=== PATIENT | female | born 1995 | race Caucasian/White ===

== ENCOUNTER 2017-06-30 23:54 | Inpatient (IN) | payer BC, OTHER ==
[2017-07-01 02:25] LABS: ADD MAN DIFF? NO
[2017-07-01 02:27] LABS: BASOPHILS % 0.2 % (0.0-2.0); HEMATOCRIT 39.7 % (37.0-47.0); HEMOGLOBIN 14.4 g/dl (12.0-16.0); LYMPHOCYTES # 1.8 10^3/ul (0.8-2.9); LYMPHOCYTES % 12.3 % (15.0-51.0); MEAN CORPUSCULAR HEMOGLOBIN 30.4 pg (29.0-33.0); MEAN CORPUSCULAR HGB CONC 36.3 g/dl (32.0-37.0); MEAN CORPUSCULAR VOLUME 83.8 fl (82.0-101.0); MEAN PLATELET VOLUME 10.2 fl (7.4-10.4); MONOCYTE # 0.4 10^3/ul (0.3-0.9); MONOCYTES % 2.6 % (0.0-11.0); NEUTROPHIL # 12.4 10^3/ul (1.6-7.5); NEUTROPHILS % 84.6 % (39.0-77.0); PLATELET COUNT 317 10^3/UL (140-415); RED BLOOD COUNT 4.74 10^6/ul (4.20-5.40); RED CELL DISTRIBUTION WIDTH 11.7 % (11.5-14.5)
[2017-07-01 02:27] LABS: WHITE BLOOD COUNT 14.7 10^3/ul (4.8-10.8)
[2017-07-01] MEDS: morphine 4 MG/ML VIAL IV (02:37)
[2017-07-01] MEDS: ONDANSETRON 4 MG INJ IV ×3 (02:38→11:26)
[2017-07-01] MEDS: HYDROmorphONE 1 MG/ML SYG IV (02:45)
[2017-07-01] MEDS: SOD CHLORIDE 0.9% 500 ML IV (02:45)
[2017-07-01 03:02] LABS: ALANINE AMINOTRANSFERASE 33 IU/L (13-69); ALBUMIN 4.8 g/dl (3.3-4.9); ALBUMIN/GLOBULIN RATIO 1.23; ALKALINE PHOSPHATASE 60 IU/L (42-121); ANION GAP 21 (8-16); ASPARTATE AMINO TRANSFERASE 21 IU/L (15-46); BILIRUBIN,INDIRECT 0.6 mg/dl (0-1.1); BILIRUBIN,TOTAL 0.6 mg/dl (0.2-1.3); BLOOD UREA NITROGEN 12 mg/dl (7-20); CALCIUM 9.9 mg/dl (8.4-10.2); CARBON DIOXIDE 20 mmol/L (21-31); CHLORIDE 106 mmol/L (97-110); GLUCOSE 145 mg/dl (70-220); LIPASE 57 U/L (23-300); POTASSIUM 3.5 mmol/L (3.5-5.1); SODIUM 143 mmol/L (135-144); TOTAL PROTEIN 8.7 g/dl (6.1-8.1)
[2017-07-01 03:21] LABS: ADD UMIC YES; UR ASCORBIC ACID NEGATIVE (NEGATIVE); UR BILIRUBIN (Dip) NEGATIVE (NEGATIVE); UR BLOOD (Dip) NEGATIVE (NEGATIVE); UR CLARITY SLIGHTLY CLOUDY (CLEAR); UR COLOR YELLOW (YELLOW); UR GLUCOSE (Dip) NEGATIVE (NEGATIVE); UR KETONES (Dip) 2+ mg/dL (NEGATIVE); UR LEUKOCYTE ESTERASE (Dip) NEGATIVE Leu/ul (NEGATIVE); UR MUCUS MODERATE /HPF (NONE SEEN); UR NITRITE (Dip) NEGATIVE (NEGATIVE); UR RBC 2 /HPF (0-5); UR SPECIFIC GRAVITY (Dip) 1.027 (1.003-1.030); UR SQUAMOUS EPITHELIAL CELL FEW /HPF (FEW); UR TOTAL PROTEIN (Dip) 1+ mg/dl (NEGATIVE); UR UROBILINOGEN (Dip) NEGATIVE (NEGATIVE); UR WBC 1 /HPF (0-5)
[2017-07-01] MEDS: morphine 2 MG INJ IV ×4 (06:48→19:51)
[2017-07-01] MEDS: DEXTROSE 5%-0.45% NACL 1,000 ML IV ×2 (06:54→18:38)
[2017-07-01] MEDS: PIPER-TAZO 3.375 GM IV (PMX) 100 ML IVPB ×3 (06:54→21:38)
[2017-07-01] MEDS ORDERED: NACL 0.9% 3 ML SYG IV (07:00)
[2017-07-01] MEDS: FAMOTIDINE 20 MG INJ IV ×2 (10:44→20:20)
[2017-07-02] MEDS: DEXTROSE 5%-0.45% NACL 1,000 ML IV ×3 (02:12→22:41)
[2017-07-02] MEDS: morphine 2 MG INJ IV ×2 (03:42→08:23)
[2017-07-02 05:08] LABS: ADD MAN DIFF? NO
[2017-07-02 05:13] LABS: WHITE BLOOD COUNT 10.9 10^3/ul (4.8-10.8)
[2017-07-02 05:13] LABS: BASOPHILS % 0.3 % (0.0-2.0); EOSINOPHILS # 0.1 10^3/ul (0.0-0.5); EOSINOPHILS % 0.7 % (0.0-7.0); HEMATOCRIT 37.5 % (37.0-47.0); HEMOGLOBIN 12.8 g/dl (12.0-16.0); LYMPHOCYTES # 3.1 10^3/ul (0.8-2.9); LYMPHOCYTES % 28.2 % (15.0-51.0); MEAN CORPUSCULAR HEMOGLOBIN 30.3 pg (29.0-33.0); MEAN CORPUSCULAR HGB CONC 34.1 g/dl (32.0-37.0); MEAN CORPUSCULAR VOLUME 88.7 fl (82.0-101.0); MEAN PLATELET VOLUME 10.6 fl (7.4-10.4); MONOCYTE # 1.4 10^3/ul (0.3-0.9); NEUTROPHIL # 6.3 10^3/ul (1.6-7.5); NEUTROPHILS % 57.5 % (39.0-77.0); PLATELET COUNT 268 10^3/UL (140-415); RED BLOOD COUNT 4.23 10^6/ul (4.20-5.40); RED CELL DISTRIBUTION WIDTH 12.1 % (11.5-14.5)
[2017-07-02 05:31] LABS: HEMOGLOBIN A1C 5.2 % (0-5.9)
[2017-07-02] MEDS: PIPER-TAZO 3.375 GM IV (PMX) 100 ML IVPB ×3 (05:33→22:40)
[2017-07-02 05:44] LABS: ALANINE AMINOTRANSFERASE 58 IU/L (13-69); ALBUMIN 3.8 g/dl (3.3-4.9); ALBUMIN/GLOBULIN RATIO 1.26; ALKALINE PHOSPHATASE 49 IU/L (42-121); ANION GAP 13 (8-16); ASPARTATE AMINO TRANSFERASE 37 IU/L (15-46); BILIRUBIN,INDIRECT 0.7 mg/dl (0-1.1); BILIRUBIN,TOTAL 0.7 mg/dl (0.2-1.3); BLOOD UREA NITROGEN 7 mg/dl (7-20); CALCIUM 8.4 mg/dl (8.4-10.2); CARBON DIOXIDE 28 mmol/L (21-31); CHLORIDE 107 mmol/L (97-110); GLUCOSE 108 mg/dl (70-220); MAGNESIUM 2.1 mg/dl (1.7-2.5); PHOSPHORUS 3.3 mg/dl (2.5-4.9); POTASSIUM 3.6 mmol/L (3.5-5.1); SODIUM 144 mmol/L (135-144); TOTAL PROTEIN 6.8 g/dl (6.1-8.1)
[2017-07-02] MEDS ORDERED: ROCURONIUM 50 MG INJ ×2 (07:00→18:25)
[2017-07-02] MEDS: FAMOTIDINE 20 MG INJ IV ×2 (08:22→22:40)
[2017-07-02] MEDS ORDERED: MIDAZOLAM 1 MG/ML 2 ML INJ (18:25)
[2017-07-02] MEDS ORDERED: PROPOFOL 20 ML (18:25)
[2017-07-02] MEDS ORDERED: METOCLOPRAMIDE 10 MG INJ (18:25)
[2017-07-02] MEDS ORDERED: ROPIVACAINE 0.5 % 30 ML VIAL (18:25)
[2017-07-02] MEDS ORDERED: ONDANSETRON 4 MG INJ ×2 (18:25→20:12)
[2017-07-02] MEDS ORDERED: PIPER-TAZO 3.375 GM IV (PMX) 100 ML (18:55)
[2017-07-02] MEDS ORDERED: DIPHENHYDRAMINE 50 MG INJ IV (19:00)
[2017-07-02] MEDS ORDERED: HYDROmorphONE (0.2 MG/ML) 10ML SYG IV ×2 (19:00→20:25)
[2017-07-02] MEDS ORDERED: ONDANSETRON 4 MG INJ IV (19:00)
[2017-07-02] MEDS: LIDOCAINE 1%/EPI 30 ML INJ (19:07)
[2017-07-02] MEDS: BUPIVACAINE 0.25% (MPF) 30 ML INJ INJ (19:07)
[2017-07-02] MEDS ORDERED: HYDROmorphONE 2 MG/ML SYG (19:28)
[2017-07-02] MEDS ORDERED: KETOROLAC 30 MG INJ (19:30)
[2017-07-02] MEDS ORDERED: MEPERIDINE 25 MG INJ (20:12)
[2017-07-02] MEDS: ONDANSETRON 4 MG INJ IV (20:13)
[2017-07-02] MEDS: MEPERIDINE 25 MG INJ IV (20:13)
[2017-07-02] MEDS: HYDROmorphONE (0.2 MG/ML) 10ML SYG IV ×2 (20:56→21:17)
[2017-07-02] MEDS ORDERED: BUPIVACAINE 0.25% (MPF) 30 ML INJ (21:17)
[2017-07-03] MEDS: morphine 2 MG INJ IV ×3 (00:09→08:22)
[2017-07-03 04:58] LABS: ADD MAN DIFF? NO
[2017-07-03 05:00] LABS: BASOPHILS % 0.1 % (0.0-2.0); EOSINOPHILS # 0.1 10^3/ul (0.0-0.5); EOSINOPHILS % 0.4 % (0.0-7.0); HEMATOCRIT 34.8 % (37.0-47.0); HEMOGLOBIN 11.8 g/dl (12.0-16.0); LYMPHOCYTES # 3.2 10^3/ul (0.8-2.9); LYMPHOCYTES % 23.9 % (15.0-51.0); MEAN CORPUSCULAR HEMOGLOBIN 29.8 pg (29.0-33.0); MEAN CORPUSCULAR HGB CONC 33.9 g/dl (32.0-37.0); MEAN CORPUSCULAR VOLUME 87.9 fl (82.0-101.0); MEAN PLATELET VOLUME 10.3 fl (7.4-10.4); MONOCYTE # 1.2 10^3/ul (0.3-0.9); MONOCYTES % 9.1 % (0.0-11.0); NEUTROPHILS % 66.2 % (39.0-77.0); PLATELET COUNT 248 10^3/UL (140-415); RED BLOOD COUNT 3.96 10^6/ul (4.20-5.40); RED CELL DISTRIBUTION WIDTH 11.9 % (11.5-14.5)
[2017-07-03 05:00] LABS: WHITE BLOOD COUNT 13.5 10^3/ul (4.8-10.8)
[2017-07-03 05:24] LABS: ANION GAP 12 (8-16); BLOOD UREA NITROGEN 5 mg/dl (7-20); CALCIUM 8.3 mg/dl (8.4-10.2); CARBON DIOXIDE 27 mmol/L (21-31); CHLORIDE 106 mmol/L (97-110); CREATININE 0.66 mg/dl (0.44-1.00); GLUCOSE 105 mg/dl (70-220); POTASSIUM 3.7 mmol/L (3.5-5.1); SODIUM 141 mmol/L (135-144)
[2017-07-03] MEDS: PIPER-TAZO 3.375 GM IV (PMX) 100 ML IVPB ×3 (05:39→22:01)
[2017-07-03] MEDS: DEXTROSE 5%-0.45% NACL 1,000 ML IV ×2 (07:46→10:53)
[2017-07-03] MEDS: FAMOTIDINE 20 MG INJ IV ×2 (08:22→20:31)
[2017-07-03] MEDS ORDERED: HYDROCODONE/APAP (5/325) TAB PO (11:00)
[2017-07-03] MEDS: HYDROCODONE/APAP (5/325) TAB PO ×3 (12:07→20:31)
[2017-07-04] MEDS: HYDROCODONE/APAP (5/325) TAB PO ×3 (02:40→14:23)
[2017-07-04] MEDS: DEXTROSE 5%-0.45% NACL 1,000 ML IV (04:35)
[2017-07-04] MEDS: PIPER-TAZO 3.375 GM IV (PMX) 100 ML IVPB (05:18)
[2017-07-04 05:22] LABS: ADD MAN DIFF? NO
[2017-07-04 05:29] LABS: WHITE BLOOD COUNT 10.4 10^3/ul (4.8-10.8)
[2017-07-04 05:29] LABS: BASOPHILS % 0.3 % (0.0-2.0); EOSINOPHILS # 0.1 10^3/ul (0.0-0.5); HEMATOCRIT 35.1 % (37.0-47.0); HEMOGLOBIN 12.1 g/dl (12.0-16.0); LYMPHOCYTES # 2.7 10^3/ul (0.8-2.9); LYMPHOCYTES % 26.3 % (15.0-51.0); MEAN CORPUSCULAR HEMOGLOBIN 30.6 pg (29.0-33.0); MEAN CORPUSCULAR HGB CONC 34.5 g/dl (32.0-37.0); MEAN CORPUSCULAR VOLUME 88.6 fl (82.0-101.0); MEAN PLATELET VOLUME 10.3 fl (7.4-10.4); MONOCYTE # 1.3 10^3/ul (0.3-0.9); MONOCYTES % 12.6 % (0.0-11.0); NEUTROPHIL # 6.2 10^3/ul (1.6-7.5); NEUTROPHILS % 59.6 % (39.0-77.0); PLATELET COUNT 244 10^3/UL (140-415); RED BLOOD COUNT 3.96 10^6/ul (4.20-5.40); RED CELL DISTRIBUTION WIDTH 11.8 % (11.5-14.5)
[2017-07-04 05:47] LABS: ANION GAP 13 (8-16); BLOOD UREA NITROGEN 5 mg/dl (7-20); CALCIUM 8.5 mg/dl (8.4-10.2); CARBON DIOXIDE 28 mmol/L (21-31); CHLORIDE 104 mmol/L (97-110); CREATININE 0.66 mg/dl (0.44-1.00); GLUCOSE 96 mg/dl (70-220); MAGNESIUM 1.9 mg/dl (1.7-2.5); POTASSIUM 3.8 mmol/L (3.5-5.1); SODIUM 141 mmol/L (135-144)
[2017-07-04] MEDS: FAMOTIDINE 20 MG INJ IV (09:22)
== END 2017-07-04 14:55 | disposition home or self-care (01) | DRG 419 ==
LOC: E/R 23:54 → MS1 07-02 20:23 → MS3 07-01 04:14
PROC: 0FT44ZZ Resection of Gallbladder, Percutaneous Endoscopic Approach (ICD-10-PCS; principal; 2017-07-02 16:30)
PROC: 0FB04ZX Excision of Liver, Percutaneous Endoscopic Approach, Diagnostic (ICD-10-PCS; 2017-07-02 16:30)
DX: K80.00 Calculus of gallbladder with acute cholecystitis without obstruction (principal); E66.9 Obesity, unspecified; R82.4 Acetonuria; N83.201 Unspecified ovarian cyst, right side; Z68.34 Body mass index [BMI] 34.0-34.9, adult
CPT/HCPCS: 36415; 74176; 76705; 76856; 80048; 80053; 81001; 83036; 83690; 83735; 84100; 85025; 96365; 96375; 96376; 99285-25